=== PATIENT | female | born 1985 | race African-American/Black ===

== ENCOUNTER 2016-08-07 17:46 | Emergency (ER) | payer OTHER ==
--- NOTE | 2016-08-07 17:59 | PDOC ---
Rapid Medical Evaluation Time Seen by Provider: 08/07/16 17:56 Medical Evaluation: Allergies Allergy/AdvReac Type Severity Reaction Status Date / Time amoxicillin [Amoxicillin] Allergy Swelling Verified 09/07/15 15:03 08/07/16 17:56 I have performed a brief in - person evaluation of this patient. The patient presents with a chief complaint of: exposure to black mold Pertinent physical finding: VS stable, Lungs clear I have ordered the following: none The patient will proceed to the Fast track for further evaluation.
[2016-08-07 18:03] VITALS: BP 165/115; PULSE 85; TEMP 97.8; BMI 44.6
--- NOTE | 2016-08-07 19:25 | PDOC ---
History of Present Illness - General Chief Complaint: Respiratory Stated Complaint: RESPIRATORY Time Seen by Provider: 08/07/16 17:56 History Source: Patient Exam Limitations: Language Barrier - History of Present Illness Initial Comments: 08/07/16 19:19 CC had cough yesterday post exposure to iirtant at apt/ raw sewage; used OTC cough meds x 2 ; denies mcdaniel, dizziness, new vision changes, sob, cp Timing/Duration: reports: yesterday Severity: reports: mild Possible Cause: Yes: irritant gases exposure Past History - Past Medical History Allergies/Adverse Reactions: Allergies Allergy/AdvReac Type Severity Reaction Status Date / Time amoxicillin [Amoxicillin] Allergy Swelling Verified 08/07/16 17:58 Penicillins Allergy Verified 08/07/16 17:58 Home Medications: Ambulatory Orders Naproxen [Naprosyn] 500 mg PO BID PRN #14 tablet 03/30/13 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 No: Wheezing Cardiac (ROS): No: Symptoms Reported, Chest Pain ABD/GI: No: Symptoms Reported *Physical Exam - Vital Signs Last Vital Signs Temp Pulse Resp BP Pulse Ox 97.8 F 85 18 165/115 95 08/07/16 17:59 08/07/16 17:59 08/07/16 17:59 08/07/16 17:59 08/07/16 17:59 - Physical Exam General Appearance: Yes: Appropriately Dressed. No: Apparent Distress HEENT: positive: TMs Normal, Pharynx Normal. negative: Tonsillar Exudate, Tonsillar Erythema Neck: positive: Supple. negative: Tender, Rigid Respiratory/Chest: positive: Lungs Clear Cardiovascular: positive: Regular Rhythm, Regular Rate. negative: Murmur Medical Decision Making - Medical Decision Making 08/07/16 19:22 Pt is wo symptoms though BP is elevated, has been using OTXC cough meds which may have elevated BP; pt will stopcough meds and will have BP check by lLMD or ED tomorrow *DC/Admit/Observation/Transfer Diagnosis at time of Disposition: Exposure to toxic gas Qualifiers: Encounter type: initial encounter Injury intent: accidental or unintentional Qualified Code(s): T59.91XA - Toxic effect of unspecified gases, fumes and vapors, accidental (unintentional), initial encounter Hypertension Qualifiers: Hypertension type: unspecified secondary hypertension Qualified Code(s): I15.9 - Secondary hypertension, unspecified; I15 - Secondary hypertension - Discharge Dispostion Disposition: HOME Condition at time of disposition: Stable Admit: No - Patient Instructions Additional Instructions: PLease see local MD or return to ED for blood pressure reevaluation in am; do not take cough meds
== END 2016-08-07 19:38 | disposition home or self-care (01) ==
LOC: JERFT 17:46 → JER 17:46 → JERFT 19:38
DX: T59.91XA Toxic effect of unspecified gases, fumes and vapors, accidental (unintentional), initial encounter (principal); I15.9 Secondary hypertension, unspecified; X58.XXXA Exposure to other specified factors, initial encounter; Y93.9 Activity, unspecified; Y92.9 Unspecified place or not applicable
CPT/HCPCS: 99281-25

== ENCOUNTER 2016-09-09 16:14 | Emergency (ER) | payer OTHER ==
[2016-09-09 16:45] VITALS: BP 162/104; TEMP 98.6; BMI 52.3
--- NOTE | 2016-09-09 17:49 | PDOC ---
History of Present Illness - General Chief Complaint: Cold Symptoms Stated Complaint: COUGH Time Seen by Provider: 09/09/16 17:20 History Source: Patient Exam Limitations: No Limitations - History of Present Illness Initial Comments: CHIEF COMPLAINT: 31 y/o afebrile female with no significant PMH c/o sore throat and cough for the past 3 days. HISTORY OF PRESENT ILLNESS: Mom states the building that they live in has fecal matter in the water and in the air and ever since this started (one month ago) the patient has been coughing. Mom states the patient had a fever on thursday but that was gone by thursday. According to the patient, what remains is a tickle in her throat and dry cough. She denies chills, earache, runny nose , n/v/d, CP, SOB, abd pain, back pain, hematuria, dysuria. She has not taken anything for the cough. Vital signs on arrival are notable for pulse ox of 95% on RA. REVIEW OF SYSTEMS: GENERAL/CONSTITUTIONAL: +fever 3 days ago - resolved. No weakness. No weight change. HEAD, EYES, EARS, NOSE AND THROAT: No change in vision. No ear pain or discharge. + sore throat. CARDIOVASCULAR: No chest pain or shortness of breath. RESPIRATORY: +dry cough. No wheezing, or hemoptysis. GASTROINTESTINAL: No abd pain, nausea, vomiting, diarrhea. GENITOURINARY: No dysuria, frequency, or change in urination. MUSCULOSKELETAL: No joint or muscle swelling or pain. No neck or back pain. SKIN: No rash or easy bruising. NEUROLOGIC: No headache, vertigo, loss of consciousness, or loss of sensation. PHYSICAL EXAM: GENERAL: The patient is awake, alert, and fully oriented, in no acute distress. She is morbidly obese with intermittent dry cough. HEAD: Normal with no signs of trauma. ENT: Pupils equal, round and reactive to light, extraocular movements intact, sclera anicteric, conjunctiva clear. Neck supple. Minimal posterior pharyngeal erythema. No anterior cervical lymphadenopathy. LUNGS: Distant secondary to obese body habitus. Normal excursion. No respiratory distress or use of accessory muscles. CV: RRR, S1/S2, no MRG. Cap refill < 2 sec. ABDOMEN: Soft, non-distended, non-tender even to deep palpation, no hepatomegaly or splenomegaly, no masses. EXTREMITIES: Normal range of motion, no edema. NEUROLOGICAL: Normal speech, normal gait. CN II-XII grossly intact. PSYCH: Normal mood, normal affect. SKIN: Warm, dry, normal turgor, no rashes or lesions noted. Past History - Past Medical History Allergies/Adverse Reactions: Allergies Allergy/AdvReac Type Severity Reaction Status Date / Time amoxicillin [Amoxicillin] Allergy Swelling Verified 09/09/16 16:40 Penicillins Allergy Verified 09/09/16 16:40 Home Medications: Ambulatory Orders Azithromycin [Zithromax 250mg Tablets -] 250 mg PO UTDICT #6 tab 09/09/16 Loratadine [Claritin] 10 mg PO DAILY #10 tablet 09/09/16 Nebulizer [Aeroeclipse II] 1 each MC PRN #1 each 09/09/16 Sodium Chloride Inhalation [Normal Saline *For Inhalation*] 3 ml IH PRN #100 vial.neb 09/09/16 Other medical history: TB - Psycho/Social/Smoking Cessation Hx Anxiety: No Suicidal Ideation: No Smoking Status: No Smoking History: Never smoked Have you smoked in the past 12 months: Yes Number of Cigarettes Smoked Daily: 5 Information on smoking cessation initiated: No Hx Alcohol Use: No Drug/Substance Use Hx: No Substance Use Type: None *Physical Exam - Vital Signs Last Vital Signs Temp Pulse Resp BP Pulse Ox 98.6 F 91 H 20 162/104 95 09/09/16 16:41 09/09/16 16:41 09/09/16 16:41 09/09/16 16:41 09/09/16 16:41 Medical Decision Making - Medical Decision Making A/P: 31 y/o afebrile female with dry cough and tickle in her throat for the past 3 days. Suspect allergies. However, O2 sat is 95% on RA. Plan is as follows: 1. CXR 2. Saline neb 3. PO claritin CXR IMPRESSION: (wet read). Fluid in the fissure of right lung. The patient states she feels better. Will treat as pneumonia. Will discharge with rx for azithromycin, saline nebs and claritin. Instructed the patient to f/u with her PCP within 2 weeks to have repeat chest xray and return to the ER with any worsening or concerning symptoms. The patient verbalizes understanding of all instructions, has no further questions and is awaiting discharge. *DC/Admit/Observation/Transfer Diagnosis at time of Disposition: Pneumonia Qualifiers: Pneumonia type: due to unspecified organism Laterality: right Lung location: middle lobe of lung Qualified Code(s): J18.1 - Lobar pneumonia, unspecified organism - Discharge Dispostion Disposition: HOME Condition at time of disposition: Improved - Patient Instructions Printed Discharge Instructions: DI for Pneumonia -- Adult Additional Instructions: Discharge Instructions: -take antibiotics as prescribed -Take claritin as prescribed -Use nebulizer with normal saline as often as needed for cough -Drink plenty of fluids -Follow up with your News Librarian within 1 week
[2016-09-09] MEDS ORDERED: SODIUM CHLORIDE FOR INHALATION 3 ML VIAL.NEB IH ONE (18:00)
[2016-09-09] MEDS ORDERED: LORATADINE 10 MG TABLET PO ONE (18:00)
[2016-09-09] MEDS ORDERED: LORATADINE 10 MG TABLET ONE (18:18)
[2016-09-09 19:28] VITALS: PULSE 98
== END 2016-09-09 19:46 | disposition home or self-care (01) ==
LOC: JERFT 16:14
PROC: 3E0F7GC Introduction of Other Therapeutic Substance into Respiratory Tract, Via Natural or Artificial Opening (ICD-10-PCS; principal; 2016-09-09)
DX: J18.1 Lobar pneumonia, unspecified organism (principal)
CPT/HCPCS: 71020-TC; 84703; 94640; 99281-25